=== PATIENT | male | born 1980 | race Caucasian/White ===

== ENCOUNTER 2016-11-08 20:38 | Emergency (ER) | payer BC ==
[~2016-11-08] VITALS: Ht 188 cm; Wt 122.7 kg
[~2016-11-08 20:38] MED LIST: ALEVE220 MG PO; BACTROBAN OINTM22 GM TP; BENADRYL50 MG PO; DOXYCYCLINE HY100 M3 PO; GENTAMICIN IV; Rocephin IV; THERAGRAN1 TABLET PO; TYLENOL EXTRA500 MG PO; Ultram PO; VIBRAMYCIN100 MG PO
[2016-11-08 21:34] LABS: MCH 29.2 PG (29.0-34.0); MCHC 34.1 G/DL (30.0-36.0); MCV 85.8 FL (86-99); MEAN PLAT.VOLUME 10.1 uM^3 (9.0-12.4); NRBC (%) 0.3 /100 WBC (0-0); PLATELET COUNT 173 K/uL (156-360); RBC DIS.WIDTH-CV 12.3 % (11.8-14.6); RBC DIS.WIDTH-SD 38.4 % (39-53); RED BLOOD COUNT 5.71 M/uL (4.00-5.50); WHITE BLOOD COUNT 6.9 K/uL (4.1-10.2)
[2016-11-08 21:50] LABS: CHLORIDE 105 mEq/L (99-109); SODIUM 138 mEq/L (136-147)
[2016-11-08 21:53] LABS: GLUCOSE 96 mg/dL (70-99)
[2016-11-08 21:54] LABS: ANION GAP 10 MEQ/L (2-14); TOTAL BILIRUBIN 1.8 mg/dL (0.0-1.0)
[2016-11-08 21:56] LABS: ALKALINE PHOSPHATASE 56 IU/L (3-129); GFR ESTIMATE (CALCULATED) > 59 mL/min/
[2016-11-08 21:57] LABS: UREA NITROGEN (BUN) 16 mg/dL (9-23)
[2016-11-08 21:58] LABS: DIRECT BILIRUBIN 0.6 mg/dL (0.0-0.3)
[2016-11-08 22:00] LABS: LIPASE 37 U/L (1.0-51.0); TROP-I INTERPRETATION NEGATIVE; TROPONIN-I < 0.01 ng/mL (0.0-0.30)
[2016-11-08 22:21] LABS: ADD MIUA? YES; BILIRUBIN NEGATIVE; BLOOD NEGATIVE; COLOR YELLOW ((YELLOW)); GLUCOSE (STRIP) NEGATIVE; KETONES 5; LEUKOCYTES NEGATIVE; NITRITE NEGATIVE; PROTEIN (STRIP) 100; UROBILINOGEN 0.2 MG/DL (0.2-1.0)
[2016-11-08 22:30] LABS: BACTERIA RARE /HPF; EPITHELIAL CELLS RARE /HPF; GRANULAR CASTS 0-5 /LPF; MUCUS 4+ /LPF; RED BLOOD CELLS 0-5 /HPF (0-5); UCUL ADDED? NO; WHITE BLOOD CELLS 0-5 /HPF (0-5)
[2016-11-08] MEDS ORDERED: ZOFRAN4 MG PO (23:27)
[2016-11-08 23:50] VITALS: BP 127/79
== END 2016-11-09 00:02 | disposition home or self-care (01) ==
LOC: EME 20:38
PROVIDERS: Emergency Medicine
DX: R11.2 Nausea with vomiting, unspecified (principal); R19.7 Diarrhea, unspecified; E86.0 Dehydration; R10.9 Unspecified abdominal pain; R07.81 Pleurodynia; Z91.81 History of falling; Z90.49 Acquired absence of other specified parts of digestive tract
CPT/HCPCS: 70450; 74176; 80048; 80076; 81003; 83690; 84484; 85027; 93005; 99281; 99285; J2270; J2405; J7030